=== PATIENT | male | born 1965 | race Caucasian/White ===

== ENCOUNTER 2019-02-25 21:19 | Observation (INO) | payer BC, OTHER, SELFPAY ==
--- OUTSIDE RECORDS SUMMARY | 2019-02-25 21:22 | XMS REPORT ---
:1965 [facility] Address [address] [place] [address] Dr. Toney [address] [place] [id number] Care Team Providers Name Role Phone Unavailable Unavailable Unavailable Problems This patient has no known problems. Allergies, Adverse Reactions, Alerts This patient has no known allergies or adverse reactions. Medications This patient has no known medications.
[2019-02-25] MEDS ORDERED: DIAZEPAM 5 MG TABLET ONE (22:00)
[2019-02-25] MEDS ORDERED: FENTANYL CITR 100 MCG/2 ML ONE (22:01)
[2019-02-25] MEDS ORDERED: KETOROLAC 30 MG/ML INJ ONE (22:18)
[2019-02-25 23:32] LABS: Absolute Lymphocytes (CBC) 1.8 K/uL (0.7-4.9); Basophils % 0.4 % (0-1.3); Eosinophils % 4.3 % (0-4.4); Hematocrit 44.8 % (39.6-49.0); RBC Red Blood Cell Count 5.26 M/uL (4.33-5.43)
[2019-02-25 23:42] LABS: Protime INR 1.06
[2019-02-25 23:48] LABS: BUN Blood Urea Nitrogen 19 mg/dL (7-18); Bicarbonate 25 mmol/L (21-32); Glucose Level 149 mg/dL (74-106); Sodium Level 140 mmol/L (136-145); Troponin (Emerg Dept Use Only) < 0.02 ng/mL (0.0-0.045)
--- NOTE | 2019-02-26 00:08 | ER ---
Nurse's Notes [facility] Name: Boone Sagastume Age: 53 yrs Sex: Male : 1965 Arrival Date: 02/25/2019 Time: 21:20 Bed 8 Private MD: Korey Wilson Diagnosis: Acute embolism and thrombosis of other specified deep vein of lower extremity Presentation: 02/25 21:25 Presenting complaint: Patient states: that he was moving furniture 8 days ago and moved the wrong way and heard his right hip pop. The next day the pain was too bad he went to [facility] in [place] and had a negative DVT and knee xray. Then 4 days ago he took a 3 1[address] His leg started to swell more and the pain has increased over the past few days. Transition of care: patient was not received from another setting of care. Onset of symptoms was February 17, 2019. Risk Assessment: Do you want to hurt yourself or someone else? Patient reports no desire to harm self or others. Initial Sepsis Screen: Does the patient meet any 2 criteria? No. Patient's initial sepsis screen is negative. Does the patient have a suspected source of infection? No. Patient's initial sepsis screen is negative. Care prior to arrival: Medication(s) given: [place] 10 mg at 1500. 21:25 Method Of Arrival: Wheelchair 21:25 Acuity: RICKIE 3 fc Historical: - Allergies: 21:53 Iodinated Contrast Media - IV Dye; lp1 21:53 Fentanyl; lp1 21:56 Iodinated Contrast Media - IV Dye; fc 21:56 shrimp; fc 21:56 Tomato seeds; fc - Home Meds: 21:56 amitriptyline 100 mg Oral tab 1 tab once daily [Active]; atorvastatin 10 mg oral tab 1 fc tab once daily [Active]; cyclobenzaprine 10 mg Oral tab 1 tab 3 times per day [Active]; fenofibrate oral 135 mg oral 1 cap once daily [Active]; gabapentin 600 mg Oral tab four times a day [Active]; hydrocodone-acetaminophen 10-325 mg Oral tab 1 tab every 6 hours [Active]; Jardiance 25 mg Oral tab 1 tab once daily [Active]; losartan 100 mg Oral tab 1 tab once daily [Active]; Lovaza 1 gram oral cap 2 caps 2 times per day [Active]; ropinirole 1 mg oral tab 1 tab twice a day [Active]; sitagliptin-metformin oral oral 1 tab 2 times per day [Active]; - PMHx: 21:56 DVT; GERD; Hyperlipidemia; Hypertension; Diabetes - NIDDM; Vascular insuff; Peripheral fc Neuropathy; Chronic pain; - PSHx: 21:56 R HIP REPLACEMENT; Knee surgery; fc - Immunization history:: Last tetanus immunization: up to date. - Social history:: Smoking status: Patient/guardian denies using tobacco, Patient/guardian denies using alcohol, street drugs. - Ebola Screening: : Patient negative for fever greater than or equal to 101.5 degrees Fahrenheit, and additional compatible Ebola Virus Disease symptoms Patient denies exposure to infectious person Patient denies travel to an Ebola-affected area in the 21 days before illness onset. Screenin:25 Fall Risk None identified. fc 21:47 Abuse screen: Denies threats or abuse. Nutritional screening: No deficits noted. fc 23:38 Tuberculosis screening: No symptoms or risk factors identified. lp1 Assessment: 21:30 General: Appears uncomfortable, Behavior is appropriate for age. Pain: Complains of lp1 pain in right knee Pain radiates to right upper thigh and right frost Pain currently is 10 out of 10 on a pain scale. Quality of pain is described as sharp. Neuro: Level of Consciousness is awake, alert, obeys commands. Cardiovascular: Patient's skin is warm and dry. Respiratory: Respiratory effort is even, unlabored. GI: No signs and/or symptoms were reported involving the gastrointestinal system. : No signs and/or symptoms were reported regarding the genitourinary system. EENT: No signs and/or symptoms were reported regarding the EENT system. Derm: Skin is pink, warm \\T\\ dry. Musculoskeletal: Swelling present in right knee. 21:52 Reassessment: Patient states he cannot be administered Fentanyl; "It turns my ears beet lp1 red and it feels like my head is on fire"; Patient okayed to list Fentanyl as allergy. 23:24 Reassessment: Patient is alert, oriented x 3, equal unlabored respirations, skin lp1 warm/dry/pink. Patient requesting to have food at this time, informed on waiting for lab results per Provider. 02/26 00:44 Reassessment: Patient aware of pending admission; States pain to right leg 8/10 at this lp1 time; Provider okay for patient to eat, patient eating meal at this time. 01:08 Reassessment: Dr. Lakhani at bedside to discuss admission and plan of care. lp1 Vital Signs: 02/25 21:25 BP 130 / 82; Pulse 74; Resp 18; Temp 98.2(O); Pulse Ox 98% on R/A; Weight 136.08 kg fc (R); Height 6 ft. 4 in. (193.04 cm) (R); Pain 10/10; 22:45 BP 112 / 68; Pulse 68; Resp 18; Pulse Ox 98% on R/A; lp1 23:45 BP 113 / 59; Pulse 62; Resp 18; Pulse Ox 96% on R/A; lp1 02/26 00:44 BP 130 / 86; Pulse 60; Resp 18; Pulse Ox 95% on R/A; Pain 8/10; lp1 02/25 21:25 Body Mass Index 36.52 (136.08 kg, 193.04 cm) ED Course: 02/25 21:20 Patient arrived in ED. am2 21:20 Korey Wilson MD is Private Physician. am2 21:25 Arm band placed on Patient placed in an exam room, on a stretcher. fc 21:25 Patient has correct armband on for positive identification. Bed in low position. Call fc light in reach. Pulse ox on. NIBP on. 21:25 No provider procedures requiring assistance completed. fc 21:28 Annika Prince FNP-C [facility]. snw 21:28 Jama Thomas MD is Attending Physician. snw 21:44 Triage completed. fc 21:51 Evy Mnia, MALCOLM is Primary Nurse. lp1 22:39 Ultrasound completed. Patient tolerated well. Notified CUB REPORTER/DANTE guerrero. sg3 22:41 US Extremity Venous Unilateral Ltd In Process Unspecified. EDMS 22:58 CT Abd/Pelvis - Without Contrast In Process Unspecified. EDMS 23:15 Inserted saline lock: 20 gauge in left antecubital area, using aseptic technique. Blood lp1 collected. 02/26 00:06 Ilana Lennon MD is Hospitalizing Provider. snw 01:08 Patient admitted, IV remains in place. lp1 Administered Medications: 02/25 21:51 Drug: Valium 5 mg Route: PO; lp1 23:52 Follow up: Response: No adverse reaction lp1 21:52 Not Given (Patient Refused): fentaNYL (PF) 50 mcg IM once lp1 22:09 Drug: TORadol 60 mg Route: IM; Site: right gluteus; lp1 23:52 Follow up: Response: No adverse reaction lp1 02/26 00:30 Drug: Xarelto 15 mg Route: PO; lp1 01:30 Follow up: Response: No adverse reaction lp1 Outcome: 00:08 Decision to Hospitalize by Provider. snw 00:30 Condition: stable lp1 00:30 Instructed on the need for admit. 02:00 Admitted to ER Hold. [facility] for further documentation. lp1 03:44 Patient left the ED. lp1 Signatures: Dispatcher [employer] EDMS Annika Prince, REGULO-C CHUTE PULLER-Csnw Geeta Javier RN RN Evy Mina RN RN lp1 Blanquita Russell am2 Iona Mario sg3 Corrections: (The following items were deleted from the chart) 02/25 23:01 22:45 BP 112 / 68; Pulse 58bpm; Resp 18bpm; Pulse Ox 98% RA; lp1 lp1
--- NOTE | 2019-02-26 00:09 | EDPHYS ---
Physician Documentation [facility] Name: Boone Sagastume Age: 53 yrs Sex: Male : 1965 Arrival Date: 02/25/2019 Time: 21:20 Bed 8 Private MD: Korey Wilson ED Physician Jama Thomas HPI: 02/26 00:09 This 53 yrs old Male presents to ER via Wheelchair with complaints of Leg snw Swelling, Leg Pain. 02/25 21:49 The patient presents with pain, swelling. The complaints affect the right inner thigh, snw medial aspect of right thigh and right quadriceps. Context: The problem was sustained at home, resulted from lifting and then seated position on road trip. Onset: The symptoms/episode began/occurred gradually, 1 week(s) ago, and became persistent. Associated signs and symptoms: Pertinent positives: swelling. Severity of symptoms: At their worst the symptoms were moderate, severe. The patient has experienced similar episodes in the past. as noted. Historical: - Allergies: 21:53 Iodinated Contrast Media - IV Dye; lp1 21:53 Fentanyl; lp1 21:56 Iodinated Contrast Media - IV Dye; fc 21:56 shrimp; fc 21:56 Tomato seeds; fc - Home Meds: 21:56 amitriptyline 100 mg Oral tab 1 tab once daily [Active]; atorvastatin 10 mg oral tab 1 fc tab once daily [Active]; cyclobenzaprine 10 mg Oral tab 1 tab 3 times per day [Active]; fenofibrate oral 135 mg oral 1 cap once daily [Active]; gabapentin 600 mg Oral tab four times a day [Active]; hydrocodone-acetaminophen 10-325 mg Oral tab 1 tab every 6 hours [Active]; Jardiance 25 mg Oral tab 1 tab once daily [Active]; losartan 100 mg Oral tab 1 tab once daily [Active]; Lovaza 1 gram oral cap 2 caps 2 times per day [Active]; ropinirole 1 mg oral tab 1 tab twice a day [Active]; sitagliptin-metformin oral oral 1 tab 2 times per day [Active]; - PMHx: 21:56 DVT; GERD; Hyperlipidemia; Hypertension; Diabetes - NIDDM; Vascular insuff; Peripheral fc Neuropathy; Chronic pain; - PSHx: 21:56 R HIP REPLACEMENT; Knee surgery; fc - Immunization history:: Last tetanus immunization: up to date. - Social history:: Smoking status: Patient/guardian denies using tobacco, Patient/guardian denies using alcohol, street drugs. - Ebola Screening: : Patient negative for fever greater than or equal to 101.5 degrees Fahrenheit, and additional compatible Ebola Virus Disease symptoms Patient denies exposure to infectious person Patient denies travel to an Ebola-affected area in the 21 days before illness onset. ROS: 21:48 Constitutional: Negative for fever, chills, and weight loss, Eyes: Negative for injury, snw pain, redness, and discharge, ENT: Negative for injury, pain, and discharge, Neck: Negative for injury, pain, and swelling, Cardiovascular: Negative for chest pain, palpitations, and edema, Respiratory: Negative for shortness of breath, cough, wheezing, and pleuritic chest pain, Abdomen/GI: Negative for abdominal pain, nausea, vomiting, diarrhea, and constipation, Back: Negative for injury and pain, : Negative for injury, bleeding, discharge, and swelling, Skin: Negative for injury, rash, and discoloration, Neuro: Negative for headache, weakness, numbness, tingling, and seizure, Psych: Negative for depression, anxiety, suicide ideation, homicidal ideation, and hallucinations. 21:48 MS/extremity: Positive for pain, swelling, tenderness, of the right leg. Exam: 21:44 Constitutional: This is a well developed, well nourished patient who is awake, alert, snw and in no acute distress. Head/Face: Normocephalic, atraumatic. Eyes: Pupils equal round and reactive to light, extra-ocular motions intact. Lids and lashes normal. Conjunctiva and sclera are non-icteric and not injected. Cornea within normal limits. Periorbital areas with no swelling, redness, or edema. ENT: Nares patent. No nasal discharge, no septal abnormalities noted. Tympanic membranes are normal and external auditory canals are clear. Oropharynx with no redness, swelling, or masses, exudates, or evidence of obstruction, uvula midline. Mucous membranes moist. Neck: Trachea midline, no thyromegaly or masses palpated, and no cervical lymphadenopathy. Supple, full range of motion without nuchal rigidity, or vertebral point tenderness. No Meningismus. Chest/axilla: Normal chest wall appearance and motion. Nontender with no deformity. No lesions are appreciated. Cardiovascular: Regular rate and rhythm with a normal S1 and S2. No gallops, murmurs, or rubs. Normal PMI, no JVD. No pulse deficits. Respiratory: Lungs have equal breath sounds bilaterally, clear to auscultation and percussion. No rales, rhonchi or wheezes noted. No increased work of breathing, no retractions or nasal flaring. Abdomen/GI: Soft, non-tender, with normal bowel sounds. No distension or tympany. No guarding or rebound. No evidence of tenderness throughout. Back: No spinal tenderness. No costovertebral tenderness. Full range of motion. Neuro: Awake and alert, GCS 15, oriented to person, place, time, and situation. Cranial nerves II-XII grossly intact. Motor strength 5/5 in all extremities. Sensory grossly intact. Cerebellar exam normal. Normal gait. Psych: Awake, alert, with orientation to person, place and time. Behavior, mood, and affect are within normal limits. 21:44 Skin: Appearance: normal except for affected area, lower legs both with PVD, venous reflux. Pt with worsening swelling to right lower leg post lifting heavy appliance. Pt seen at [facility], [place] negative. Pt rested a couple of days and then took a road trip for 7 hours. + increase in edema post trip. + pain from groin to knee on the right. Vital Signs: 21:25 BP 130 / 82; Pulse 74; Resp 18; Temp 98.2(O); Pulse Ox 98% on R/A; Weight 136.08 kg fc (R); Height 6 ft. 4 in. (193.04 cm) (R); Pain 10/10; 22:45 BP 112 / 68; Pulse 68; Resp 18; Pulse Ox 98% on R/A; lp1 23:45 BP 113 / 59; Pulse 62; Resp 18; Pulse Ox 96% on R/A; lp1 02/26 00:44 BP 130 / 86; Pulse 60; Resp 18; Pulse Ox 95% on R/A; Pain 8/10; lp1 02/25 21:25 Body Mass Index 36.52 (136.08 kg, 193.04 cm) [facility]: 02/25 21:36 Patient medically screened. snw 02/26 00:08 Data reviewed: vital signs, nurses notes. Data interpreted: Pulse oximetry: on room air snw is 98 %. Interpretation: normal. Counseling: I had a detailed discussion with the patient and/or guardian regarding: the historical points, exam findings, and any diagnostic results supporting the discharge/admit diagnosis, lab results, radiology results, the need for outpatient follow up, to return to the emergency department if symptoms worsen or persist or if there are any questions or concerns that arise at home. Physician consultation: Ilana Lennon MD was called at 00:08, was contacted at 00:08, regarding admission, to the telemetry unit. 02/25 22:47 Order name: CBC with Diff; Complete Time: 23:37 snw 02/25 22:47 Order name: Chem 7; Complete Time: 23:49 snw 02/25 21:35 Order name: CT Abd/Pelvis - Without Contrast snw 02/25 22:47 Order name: PT-INR; Complete Time: 23:48 snw 02/25 22:47 Order name: Ptt, Activated; Complete Time: 23:48 snw 02/25 22:47 Order name: Troponin (emerg Dept Use Only); Complete Time: 23:49 snw 02/25 21:35 Order name: US Extremity Venous Unilateral Ltd snw Administered Medications: 02/25 21:51 Drug: Valium 5 mg Route: PO; lp1 23:52 Follow up: Response: No adverse reaction lp1 21:52 Not Given (Patient Refused): fentaNYL (PF) 50 mcg IM once lp1 22:09 Drug: TORadol 60 mg Route: IM; Site: right gluteus; lp1 23:52 Follow up: Response: No adverse reaction lp1 02/26 00:30 Drug: Xarelto 15 mg Route: PO; lp1 01:30 Follow up: Response: No adverse reaction lp1 Disposition: 02/26/19 00:08 Hospitalization ordered by Ilana Lennon for Inpatient Admission. Preliminary diagnosis is Acute embolism and thrombosis of other specified deep vein of lower extremity. - Bed requested for Telemetry/MedSurg (Inpatient). - Status is Inpatient Admission. lp1 - Condition is Stable. - Problem is new. - Symptoms are unchanged. UTI on Admission? No Signatures: Dispatcher [facility] Judy Yung RN RN Annika Nye CAR TRIMMER-C CAR TRIMMER-Csnw Geeta Javier, RN RN Evy Mina, RN RN lp1 Corrections: (The following items were deleted from the chart) :44 00:08 Hospitalization Ordered by Ilana Lennon MD for Inpatient Admission. Preliminary diagnosis is Acute embolism and thrombosis of other specified deep vein of lower extremity. Bed requested for Telemetry/MedSurg (Inpatient). Status is Inpatient Admission. Condition is Stable. Problem is new. Symptoms are unchanged. UTI on Admission? No. snw 01:48 00:44 02/26/2019 00:08 Hospitalization Ordered by Ilana Lennon MD for Inpatient mw Admission. Preliminary diagnosis is Acute embolism and thrombosis of other specified deep vein of lower extremity. Bed requested for Telemetry/MedSurg (Inpatient). Status is Inpatient Admission. Condition is Stable. Problem is new. Symptoms are unchanged. UTI on Admission? No. mw 01:49 01:48 02/26/2019 00:08 Hospitalization Ordered by Ilana Lennon MD for Inpatient mw Admission. Preliminary diagnosis is Acute embolism and thrombosis of other specified deep vein of lower extremity. Bed requested for [facility] ER HOLD. Status is Inpatient Admission. Condition is Stable. Problem is new. Symptoms are unchanged. UTI on Admission? No. mw 02:33 01:49 02/26/2019 00:08 Hospitalization Ordered by Ilana Lennon MD for Inpatient mw Admission. Preliminary diagnosis is Acute embolism and thrombosis of other specified deep vein of lower extremity. Bed requested for [facility] ER HOLD. Status is Inpatient Admission. Condition is Stable. Problem is new. Symptoms are unchanged. UTI on Admission? No. mw 03:44 02:33 02/26/2019 00:08 Hospitalization Ordered by Ilana Lennon MD for Inpatient lp1 Admission. Preliminary diagnosis is Acute embolism and thrombosis of other specified deep vein of lower extremity. Bed requested for Telemetry/MedSurg (Inpatient). Status is Inpatient Admission. Condition is Stable. Problem is new. Symptoms are unchanged. UTI on Admission? No. mw
[2019-02-26] MEDS ORDERED: RIVAROXABAN 10 MG TABLET ONE (00:40)
[2019-02-26] MEDS ORDERED: RIVAROXABAN 15 MG TABLET PO ONE (00:41)
--- NOTE | 2019-02-26 01:50 | P.HP ---
Certification for Inpatient Patient admitted to: Observation With expected LOS: <2 Midnights Practitioner: I am a practitioner with admitting privileges, knowledge of patient current condition, hospital course, and medical plan of care. Services: Services provided to patient in accordance with Admission requirements found in Title 42 Section 412.3 of the Code of Federal Regulations Patient History Date of Service: 02/26/19 Reason for admission: Acute DVT History of Present Illness: Mr Sagastume is a 53 years old male with history of DM II, HTN, venous stasis, obesity, chronic pain, who start about 8 days ago with right groin pain. He went to [facility], he was checked for DVT, which was negative. He continue with the pain along this week, and start noticed progressive swelling. He denied fever or chills. No SOB or chest pain. He has history of DVT in the past after knee surgery. He came to day because his symptoms got worse. Lower extremity doppler US in ER was remarkable for an extensive clot from femoral to popliteal vein. Allergies Iodinated Contrast- Oral and IV Dye [Iodinated Contrast Media - IV Dye] Allergy (Intermediate, Verified 09/23/15 15:37) swelling Home Medications: Aspirin 325 mg PO DAILY 04/17/13 Losartan Potassium [Cozaar*] 100 mg PO DAILY 04/17/13 Zegerid 20 mg Capsule 1 tab PO DAILY 04/17/13 Hydrocodone 10/APAP 325 [[place] 10/325*] 1 tab PO Q6H PRN #40 tab 04/27/13 Amitriptyline HCl 100 mg PO DAILY 03/21/17 Ascorbic Acid [Vitamin C*] 1,000 mg PO DAILY 03/21/17 Atorvastatin Calcium [Lipitor*] 10 mg PO DAILY 03/21/17 Canagliflozin [Invokana] 300 mg PO DAILY 03/21/17 Docosahexanoic AC/Epa [Fish Oil 1,000 MG*] 1,000 mg PO QID 03/21/17 Docusate Sodium [Stool Softener] 250 mg PO BID 03/21/17 Empagliflozin [Jardiance] 25 mg PO DAILY 03/21/17 Fenofibric Acid (Choline) [Fenofibric Acid] 135 mg PO DAILY 03/21/17 Gabapentin 600 mg PO QID 03/21/17 Ropinirole HCl 2 mg PO DAILY 03/21/17 Sitagliptin Phos/Metformin HCl [Janumet 50-1,000 mg Tablet] 1 tab PO DAILY 03/21 Temazepam 30 mg PO DAILY 03/21/17 Insulin Detemir [Levemir*] 15 units SQ BEDTIME #1 vial 03/29/17 Clindamycin HCl [Cleocin HCl] 300 mg PO Q6H #56 capsule 04/04/17 levoFLOXacin [Levaquin*] 750 mg PO DAILY #14 tab 04/04/17 - Past Medical/Surgical History Diabetic: Yes -: HTN, -: DVT -: Hyperlipidemia -: GERD -: r leg dvt w/abcess -: Right total hip replacement -: bilateral orthoscopic -: left carpal tunnel surg - Social History Smoking Status: Former smoker Alcohol use: No CD- Drugs: No Caffeine use: Yes Place of Residence: Home Review of Systems 10-point ROS is otherwise unremarkable Physical Examination - Physical Exam General: Alert, In no apparent distress HEENT: Atraumatic, PERRLA, Mucous membr. moist/pink, EOMI, Sclerae nonicteric Neck: Supple, 2+ carotid pulse no bruit, No LAD, Without JVD or thyroid abnormality Respiratory: Clear to auscultation bilaterally, Normal air movement Cardiovascular: Regular rate/rhythm, Normal S1 S2 Gastrointestinal: Normal bowel sounds, No tenderness Musculoskeletal: Swelling (right leg), Tenderness Integumentary: No rashes Neurological: Normal gait, Normal speech, Normal strength at 5/5 x4 extr, Normal tone, Normal affect Lymphatics: No axilla or inguinal lymphadenopathy - Studies Laboratory Data (last 24 hrs) 02/25/19 23:15: PT 12.5, INR 1.06, APTT 26.8 02/25/19 23:15: Sodium 140, Potassium 4.0, BUN 19 H, Creatinine 0.94, Glucose 149 H 02/25/19 23:15: WBC 9.4, Hgb 15.1, Hct 44.8, Plt Count 198 Assessment and Plan - Problems (Diagnosis) (1) DVT (deep venous thrombosis) Current Visit: Yes Status: Acute Qualifiers: DVT location: lower extremity Affected thrombotic vein of extremity: femoral Chronicity: acute Laterality: right Qualified Code(s): I82.411 - Acute embolism and thrombosis of right femoral vein (2) History of - hypertension Onset Date: 03/22/17 Current Visit: No Status: Chronic (3) Peripheral vascular disease Onset Date: 03/22/17 Current Visit: No Status: Chronic (4) Type 2 diabetes mellitus Onset Date: 03/22/17 Current Visit: No Status: Chronic Qualifiers: Diabetes mellitus halfway insulin use: with halfway use Diabetes mellitus complication status: without complication Qualified Code(s): E11.9 - Type 2 diabetes mellitus without complications; Z79.4 - [facility] (current) use of insulin - Plan The patient will be admitted under observation due to extensive right lower extremity DVT. Will start anticoagulation and symptomatic medication for pain. - Advance Directives Does patient have a Living Will: No Does patient have a Durable POA for Healthcare: No - Code Status/Comfort Care Code Status Assessed: Yes Code Status: Full Code
[2019-02-26] MEDS ORDERED: ONDANSETRON 4 MG/2 ML VIAL IV PRN (02:21)
[2019-02-26] MEDS: HYDROCODONE/APAP 10/325 TAB PO PRN ×2 (02:30→14:06)
[2019-02-26] MEDS: NA CHLORIDE 0.9% 1,000 ML IV SCH ×2 (02:30→12:21)
[2019-02-26 04:06] VITALS: BMI 36.3
[2019-02-26] MEDS: INSULIN -REGULAR HUMAN 50 UNIT/0.5 ML ML SQ SCH ×4 (07:30→20:46)
--- NOTE | 2019-02-26 08:49 | RAD REPORT ---
EXAM DESCRIPTION: US - Extremity Venous Uni Ltd - 02/25/2019 10:41 pm CLINICAL HISTORY: Right lower extremity pain and swelling. Preliminary findings provided at the time of the study. COMPARISON: None. TECHNIQUE: Real-time sonographic evaluation of the right lower extremity deep venous systems was per formed. FINDINGS: Thrombus is present filling the right common femoral, superficial femoral and popliteal ve ins. Diminished or absent flow noted on Doppler evaluation of these vessels. No DVT confirmed below t he knee. No mass or abnormal fluid collection in the soft tissues. IMPRESSION: Acute right lower extremity DVT from groin to knee.
[2019-02-26] MEDS: FENOFIBRIC ACID 135 MG PO SCH (09:00)
[2019-02-26] MEDS: METFORMIN HCL PO SCH ×2 (09:00→19:39)
[2019-02-26] MEDS: SITAGLIPTIN PHOS PO SCH ×2 (09:00→19:39)
[2019-02-26] MEDS: HOME MED 1 EA UNK (Empagliflozin [Jardiance] 25 MG) PO SCH (09:00)
[2019-02-26] MEDS: LOSARTAN POTASSIUM 50 MG TABLET PO SCH (09:06)
[2019-02-26] MEDS: RIVAROXABAN 15 MG TABLET PO SCH ×2 (09:07→20:45)
[2019-02-26] MEDS: GABAPENTIN 300 MG CAP PO SCH ×4 (09:08→20:44)
[2019-02-26] MEDS: MORPHINE 2 MG/ML SYR IV PRN ×3 (09:20→20:45)
--- NOTE | 2019-02-26 11:06 | RAD REPORT ---
EXAM DESCRIPTION: CT - Abdomen Pelvis Wo Contrast - 02/25/2019 11:29 pm CLINICAL HISTORY: 53 years Male groin pain COMPARISON: None TECHNIQUE: Images were obtained in axial, sagittal, and coronal planes. No intravenous or oral contr ast was administered. This exam was performed according to our departmental dose-optimization program which includes use of Automated Exposure Control, adjustment of the mA and/or kV according to patient size and/or use of i terative reconstruction technique. FINDINGS: No obstructing renal calcifications bilaterally. No hydronephrosis bilaterally. Unremarkab le bladder. No abnormality involving the liver. Spleen is enlarged measuring 14.5 cm in greatest dimension. Unrem arkable pancreas, gallbladder, and adrenal glands bilaterally. Calcification abdominal aorta with no dilatation seen. Appendix within normal limits. No bowel obstruction, perforation, or inflammation. No abnormality lower lungs bilaterally. Superior endplate depression L2 vertebral body consistent with compression fracture of indeterminate age. Mild to moderate multilevel osteoarthritic change.. Sclerotic focus left sacrum possibly bone is land. Bilateral total hip prostheses. IMPRESSION: No acute intra-abdominal abnormality. Enlarged spleen. Electronically signed by: Wendi Demarco MD 02/25/2019 11:21 PM CDT Due to temporary technical issues with the PACS/Fluency reporting system, reports are being signed by the in house radiologist as a courtesy to ensure prompt reporting. The interpreting radiologist is f ully responsible for the content of the report.
--- NOTE | 2019-02-26 12:02 | P.DS ---
Admission Date: 02/26/19 Discharge Date: 02/26/19 Primary Care Provider: Dr. Wilson Disposition: ROUTINE DISCHARGE Discharge Condition: GOOD Reason for Admission: Acute DVT Consultations: None Procedures: CT scan: No acute GI abnormality. Enlarged spleen noted. Venous doppler: FINDINGS: Thrombus is present filling the right common femoral, superficial femoral and popliteal veins. Diminished or absent flow noted on Doppler evaluation of these vessels. No DVT confirmed below the knee. No mass or abnormal fluid collection in the soft tissues. IMPRESSION: Acute right lower extremity DVT from groin to knee. Echocardiogram: Unremarkable as per Cardiology. Medical Problem List: Right lower extremity pain and swelling secondary to acute right lower extremity DVT from groin to knee with history of DVT Diabetes mellitus type 2 Hypertension GERD Chronic back pain Venous insufficiency Obesity, BMI 36 Brief History of Present Illness: 53-year-old male presented to the emergency room with right lower extremity swelling and pain. Patient reported some growing pain to the right side about a week ago. He was seen at [facility] ER. He was evaluated for DVT at that time. No DVT identified. In the ER patient found to have extensive DVT from the popliteal to femoral area of the right lower extremity. Patient with history of DVT in the distant past after needs Patient was admitted for observation. Hospital Course: Patient presented with right lower extremity pain and swelling acute right lower extremity DVT. Patient started on anti coagulation therapy. Patient with history of DVT in the past. At discharge patient will continue with Xarelto 15 mg 1 pill twice daily for 21 days then he will continue with 20 mg daily with food. Patient will likely require lifetime treatment since he has had a prior DVT. Recommend follow up with hematology to further evaluate and address. Education on Xarelto and DVT will be provided. Prior authorization for Xarelto was obtained. Patient will need a follow up with his PCP within 1 week to be cleared to go back to work. Patient will need to limit excessive activity over the next week. Patient with diabetes mellitus type 2. He has [id number]. At discharge he will continue with his current medications including Jardiance 25 mg daily, Janumet 50/100 mg 1 pill twice daily. Recommend blood sugars less than 140 fasting and less than 200 after meals. Further adjustment can be done by his PCP. Recommend follow up with his PCP to further address. Patient with hypertension. At discharge she will continue with losartan 100 mg daily. Recommend to maintain blood pressures less 150/80. Further adjustment can be done by his PCP. Patient with hyperlipidemia. Patient will continue with Lipitor 10 mg daily. Patient with chronic pain. Patient takes hydrocodone and gabapentin. Patient may continue with his current medication and follow up with pain management. Vital Signs/Physical Exam: Temp Pulse Resp BP Pulse Ox 98.2 F 56 18 115/60 98 02/26/19 08:00 02/26/19 08:00 02/26/19 08:00 02/26/19 08:00 02/26/19 08:00 General: Alert, In no apparent distress, Oriented x3, Cooperative HEENT: Atraumatic Neck: Supple Respiratory: Clear to auscultation bilaterally, Normal air movement Cardiovascular: Normal pulses, Regular rate/rhythm Gastrointestinal: Normal bowel sounds, Soft and benign, Non-distended, No masses , No rebound, No guarding Musculoskeletal: Other (Mild pain to the right lower extremity with edema noted) Integumentary: No erythema, No warmth, No cyanosis Neurological: Normal speech, Normal strength at 5/5 x4 extr, Normal tone Laboratory Data at Discharge: WBC 9.4 K/uL (4.3-10.9) 02/25/19 23:15 Hgb 15.1 g/dL (13.6-17.9) 02/25/19 23:15 Hct 44.8 % (39.6-49.0) 02/25/19 23:15 Plt Count 198 K/uL (152-406) 02/25/19 23:15 PT 12.5 SECONDS (9.5-12.5) 02/25/19 23:15 INR 1.06 02/25/19 23:15 APTT 26.8 SECONDS (24.3-36.9) 02/25/19 23:15 Sodium 140 mmol/L (136-145) 02/25/19 23:15 Potassium 4.0 mmol/L (3.5-5.1) 02/25/19 23:15 BUN 19 mg/dL (7-18) H 02/25/19 23:15 Creatinine 0.94 mg/dL (0.55-1.3) 02/25/19 23:15 Glucose 149 mg/dL (74-106) H 02/25/19 23:15 Home Medications: Losartan Potassium [Cozaar*] 100 mg PO DAILY 04/17/13 Hydrocodone 10/APAP 325 [[place] 10/325*] 1 tab PO Q6H PRN #40 tab 04/27/13 Atorvastatin Calcium [Lipitor*] 10 mg PO DAILY 03/21/17 Empagliflozin [Jardiance] 25 mg PO DAILY 03/21/17 Fenofibric Acid (Choline) [Fenofibric Acid] 135 mg PO DAILY 03/21/17 Gabapentin 600 mg PO QID 03/21/17 Sitagliptin Phos/Metformin HCl [Janumet 50-1,000 mg Tablet] 1 tab PO BID Rivaroxaban [Xarelto*] 15 mg PO SEECOM #42 tablet 02/26/19 Rivaroxaban [Xarelto] 20 mg PO DAILY #30 tab 02/26/19 New Medications: Rivaroxaban [Xarelto*] 15 mg PO SEECOM #42 tablet Rivaroxaban [Xarelto] 20 mg PO DAILY #30 tab Patient Discharge Instructions: 1. Recommend follow up with PCP within 1 week. 2. Patient presented with right lower extremity pain and swelling acute right lower extremity DVT. Patient started on anti coagulation therapy. Patient with history of DVT in the past. Echocardiogram unremarkable. Patient ambulating well. At discharge patient will continue with Xarelto 15 mg 1 pill twice daily for 21 days then he will continue with 20 mg daily with food. Patient will likely require lifetime treatment since he has had a prior DVT. Recommend follow up with hematology to further evaluate and address. Education on Xarelto and DVT will be provided. Prior authorization for Xarelto was obtained. Patient will need a follow up with his PCP within 1 week to be cleared to go back to work. Patient will need to limit excessive activity over the next week. 3. Patient with diabetes mellitus type 2. He has non-insulin- dependent. At discharge he will continue with his current medications including Jardiance 25 mg daily, Janumet 50/100 mg 1 pill twice daily. Recommend blood sugars less than 140 fasting and less than 200 after meals. Further adjustment can be done by his PCP. Recommend follow up with his PCP to further address. 4. Patient with hypertension. At discharge she will continue with losartan 100 mg daily. Recommend to maintain blood pressures less 150/80. Further adjustment can be done by his PCP. 5. Patient with hyperlipidemia. Patient will continue with Lipitor 10 mg daily. 6. Patient with chronic pain. Patient takes hydrocodone and gabapentin. Patient may continue with his current medication and follow up with pain management. Diet: AHA Activity: Fall precautions Time spent managing pt's care (in minutes): 55
[2019-02-26 14:19] LABS: Urine Appearance CLEAR; Urine Bilirubin NEGATIVE (NEG); Urine Blood NEGATIVE (NEG); Urine Color YELLOW; Urine Glucose 3+ (NEG); Urine Protein NEGATIVE (NEG); Urine Specific Gravity >=1.030 (1.005-1.030); Urine Urobilinogen 0.2 mg/dL (0.2-1.0)
[2019-02-26 14:47] LABS: Urine Microscopic Reflex NO UMIC
--- NOTE | 2019-02-26 17:45 | ECHO ---
HEIGHT: 6 ft 4 in WEIGHT: 298 lb 14.4 oz DATE OF STUDY: 02/26/[address]: Juve Cuenca DO 2-DIMENSIONAL: YES M.MODE: YES DOPPLER: YES COLOR FLOW: YES TDS: NO PORTABLE: NO DEFINITY: NO BUBBLE STUDY: NO DIAGNOSIS: DEEP VEIN THROMBOSIS CARDIAC HISTORY: CATHERIZATION: NO SURGERY: NO PROSTHETIC VALVE: NO PACEMAKER: NO MEASUREMENTS (cm) DIASTOLIC (NORMALS) SYSTOLIC (NORMALS) IVSd 1.2 (0.6-1.2) LA Diam 4.0 (1.9-4.0) LVEF 65% LVIDd 4.3 (3.5-5.7) LVIDs 2.8 (2.0-3.5) %FS 35% LVPWd 1.2 (0.6-1.2) Ao Diam 2.8 (2.0-3.7) 2 DIMENSIONAL ASSESSMENT: RIGHT ATRIUM: NORMAL LEFT ATRIUM: NORMAL RIGHT VENTRICLE: NORMAL LEFT VENTRICLE: NORMAL TRICUSPID VALVE: NORMAL MITRAL VALVE: NORMAL PULMONIC VALVE: NORMAL AORTIC VALVE: NORMAL PERICARDIAL EFFUSION: NONE. AORTIC ROOT: NORMAL LEFT VENTRICULAR WALL MOTION: NORMAL. DOPPLER/COLOR FLOW: NORMAL. COMMENTS: NORMAL 2D ECHOCARDIOGRAM WITH DOPPLER. NO WALL MOTION ABNORMALITIES. NO EFFUSION. TECHNOLOGIST: VANNESA VELASQUEZ
[2019-02-26] MEDS ORDERED: ATORVASTATIN 10 MG TAB PO SCH (21:00)
[2019-02-27 04:35] LABS: Absolute Lymphocytes (CBC) 1.9 K/uL (0.7-4.9); Basophils % 0.5 % (0-1.3); Eosinophils % 4.6 % (0-4.4); Hematocrit 42.8 % (39.6-49.0); Lymphocytes % 20.1 % (15.3-44.8); MPV 9.2 fL (7.6-11.3); Monocytes % 9.2 % (3.3-12.3); RBC Red Blood Cell Count 4.98 M/uL (4.33-5.43)
[2019-02-27 04:47] LABS: BUN Blood Urea Nitrogen 17 mg/dL (7-18); Bicarbonate 27 mmol/L (21-32); Glucose Level 126 mg/dL (74-106); Sodium Level 140 mmol/L (136-145)
[2019-02-27] MEDS: MORPHINE 2 MG/ML SYR IV PRN ×2 (05:12→09:35)
[2019-02-27] MEDS: INSULIN -REGULAR HUMAN 50 UNIT/0.5 ML ML SQ SCH ×2 (07:30→11:30)
[2019-02-27 08:09] VITALS: O2SAT 94
[2019-02-27] MEDS: FENOFIBRIC ACID 135 MG PO SCH (08:10)
[2019-02-27] MEDS: HOME MED 1 EA UNK (Empagliflozin [Jardiance] 25 MG) PO SCH (08:10)
[2019-02-27] MEDS: HYDROCODONE/APAP 10/325 TAB PO PRN (08:13)
[2019-02-27] MEDS: GABAPENTIN 300 MG CAP PO SCH ×2 (08:13→12:33)
[2019-02-27] MEDS: LOSARTAN POTASSIUM 50 MG TABLET PO SCH (08:13)
[2019-02-27] MEDS: RIVAROXABAN 15 MG TABLET PO SCH (08:15)
[2019-02-27] MEDS: METFORMIN HCL PO SCH (08:15)
[2019-02-27] MEDS: SITAGLIPTIN PHOS PO SCH (08:15)
[2019-02-27 09:59] VITALS: BP 125/82; TEMP 97.8
== END 2019-02-27 13:55 | disposition home or self-care (01) ==
LOC: ER 21:19 → ERHOLD 02-26 01:54 → 4TH 02-26 03:09
PROVIDERS: ADMIT Internal Medicine; ATTEND Internal Medicine
DX: I82.411 Acute embolism and thrombosis of right femoral vein (principal); I82.431 Acute embolism and thrombosis of right popliteal vein; E11.9 Type 2 diabetes mellitus without complications; I10 Essential (primary) hypertension; K21.9 Gastro-esophageal reflux disease without esophagitis; M54.9 Dorsalgia, unspecified; I87.2 Venous insufficiency (chronic) (peripheral); E66.9 Obesity, unspecified; Z68.36 Body mass index [BMI] 36.0-36.9, adult
CPT/HCPCS: 36415; 74176; 80048; 81003; 82962; 84484; 85025; 85610; 85730; 93306; 93971; 96372; 99285; G0378; J2270; J2405; J3010; J7030